=== PATIENT | female | born 1990 | race Caucasian/White ===

== ENCOUNTER 2016-11-15 08:20 | Day surgery (SDC) | payer OTHER ==
[2016-11-14 08:45] VITALS: BMI 17.7
[2016-11-15] MEDS ORDERED: MIDAZOLAM HCL 2 MG/2 ML SINGLE DOSE VIAL ONE (10:24)
[2016-11-15] MEDS ORDERED: ROCURONIUM BROMIDE 50 MG/5 ML VIAL ONE (10:25)
[2016-11-15] MEDS ORDERED: ceFAZolin SODIUM 1 GM VIAL ONE (10:26)
[2016-11-15] MEDS ORDERED: PROMETHAZINE HCL 25 MG/1 ML VIAL IVPUSH PRN (10:33)
[2016-11-15] MEDS ORDERED: ONDANSETRON 4 MG/2 ML VIAL IVPUSH PRN (10:33)
[2016-11-15] MEDS ORDERED: LIDOCAINE HCL 2% (20ML MULTI-DOSE VIAL) NR ONE (10:51)
[2016-11-15] MEDS ORDERED: PROTAMINE SULFATE 50 MG/5 ML VIAL ONE (10:52)
[2016-11-15] MEDS ORDERED: PROPOFOL 20 ML ONE (10:52)
[2016-11-15] MEDS ORDERED: DEXAMETHASONE SOD PHOSPHATE 4 MG/1 ML VIAL ONE (10:58)
[2016-11-15] MEDS ORDERED: ceFAZolin SODIUM 1 GM VIAL IVPB ONE (11:01)
[2016-11-15] MEDS ORDERED: NEOSTIGMINE METHYLSULFATE 0.5 MG/ML - 10 ML MDV ONE (11:33)
[2016-11-15] MEDS ORDERED: GLYCOPYRROLATE 0.2 MG/1 ML VIAL ONE (11:33)
[2016-11-15] MEDS ORDERED: DESFLURANE GAS 240 ML BOTTLE IH ONE (11:44)
[2016-11-15] MEDS ORDERED: BUPIVACAINE HCL/PF 0.5% (5MG/ML) 10 ML VIAL IJ ONE (11:52)
[2016-11-15] MEDS ORDERED: OXYCODONE/APAP 5/325MG COMBO TABLET PO PRN ×2 (12:14→12:17)
[2016-11-15] MEDS ORDERED: SODIUM CHLORIDE 1,000 ML IV SCH (12:15)
[2016-11-15] MEDS ORDERED: ONDANSETRON 4 MG/2 ML VIAL IVPB PRN (12:21)
--- NOTE | 2016-11-15 12:25 | OP ---
Operative Note - Note: Operative Date: 11/15/16 Pre-Operative Diagnosis: multi-nodular goiter Operation: sub-total thyroidectomy Implants: none Post-Operative Diagnosis: Same as Pre-op Surgeon: Mariama Turcios Candy Depositing Machine Operator: Ratna Burks Anesthesia: General Specimens Removed: left thyroid lobe and partial right thyroid lobe Estimated Blood Loss (mls): 50 Operative Report Dictated: Yes
--- NOTE | 2016-11-15 12:26 | HP ---
History & Physical Update - History History: No Change - Physical Physical: No Change - Assessment Assessment: No Change - Plan Plan: No Change
[2016-11-15] MEDS ORDERED: HYDROmorphone HCL CARPU-JECT 2 MG/1 ML DISP.SYRIN ONE (13:03)
[2016-11-15] MEDS ORDERED: HYDROmorphone HCL CARPU-JECT 2 MG/1 ML DISP.SYRIN IVPB ONE (13:07)
[2016-11-15] MEDS ORDERED: ACETAMINOPHEN 325 MG TABLET (FP) PO PRN ×2 (14:23→14:28)
[2016-11-15] MEDS ORDERED: oxyCODONE HCL 5 MG TABLET PO PRN ×2 (14:25→14:30)
[2016-11-15] MEDS: HYDROmorphone HCL CARPU-JECT 1 MG/1 ML DISP.SYRIN IVPB PRN ×2 (16:49→23:34)
[2016-11-15] MEDS: LACTATED RINGERS SOLUTION 1,000 ML IV SCH (16:52)
[2016-11-15 20:01] LABS: ALBUMIN 3.4 g/dl (3.4-5.0); ANION GAP 7 (8-16); CALCIUM 8.3 mg/dL (8.5-10.1); CO2 27 mmol/L (21-32); GLUCOSE,RANDOM 102 mg/dL (74-106)
[2016-11-15 20:05] LABS: ALK PHOS 57 U/L (45-117); BILIRUBIN,TOTAL 0.2 mg/dL (0.2-1.0); CREATININE 0.6 mg/dL (0.55-1.02); SGOT/AST 15 U/L (15-37); SGPT/ALT 14 U/L (12-78); TOT PROT 6.8 g/dl (6.4-8.2)
[2016-11-16] MEDS: HYDROmorphone HCL CARPU-JECT 1 MG/1 ML DISP.SYRIN IVPB PRN (05:40)
--- NOTE | 2016-11-16 06:45 | OP ---
DATE OF OPERATION: 11/15/2016 PREOPERATIVE DIAGNOSIS: Multinodular goiter with dysphagia and difficulty in breathing. POSTOPERATIVE DIAGNOSIS: Multinodular goiter with dysphagia and difficulty in breathing. OPERATIVE PROCEDURE: Near total thyroidectomy. SURGEON: Paras Turcios MD COMMUNICATIONS ASSOCIATE: JAKE Almaguer ANESTHESIA: General endotracheal intubation. INDICATIONS: This is a 26-year-old woman with a history of multinodular goiter admitted with difficulty in swallowing and breathing off and on, at night especially, and patient had a preoperative evaluation which revealed multinodular goiter, both lobes, large size. DESCRIPTION OF PROCEDURE: With the patient after explaining the risks and benefits, she was brought to the operating room. Patient was intubated. Intravenous antibiotic was given. Neck was extended, and incision was made on the lower neck crease. Platysmal muscle was opened, and flap was created above and below, to identify the midline, and once it was done, the thyroid was dissected on both sides. Medial rotation of the thyroid lobe was done, and the superior gland was taken on the gland leaving a small sliver of the thyroid gland behind to avoid injury to the superior laryngeal nerve, and both the recurrent laryngeal nerves were clearly identified and preserved, and thyroid gland was taken away from the trachea, and after adequate hemostasis, the platysma and the skin were closed. Marcaine was injected, and patient went to the recovery room, extubated with no neurological complications. PARAS TURCIOS M.D. [id number]
[2016-11-16] MEDS ORDERED: LEVOTHYROXINE NA 75 MCG TABLET (FP) PO SCH (07:00)
[2016-11-16 07:32] LABS: BASOPHIL 0.4 % (0-2.0); EOSINOPHIL 0.4 % (0-4.5); MCH 26.6 pg (25.7-33.7); MCHC 32.8 g/dl (32.0-36.0); MEAN CELL VOLUME 81.1 fl (80-96); PLATELET COUNT 226 K/MM3 (134-434); RDW 15.1 % (11.6-15.6)
[2016-11-16 08:16] LABS: ALBUMIN 3.2 g/dl (3.4-5.0); ALK PHOS 54 U/L (45-117); ANION GAP 12 (8-16); BILIRUBIN,TOTAL 0.4 mg/dL (0.2-1.0); CALCIUM 8.1 mg/dL (8.5-10.1); CO2 28 mmol/L (21-32); CREATININE 0.5 mg/dL (0.55-1.02); GLUCOSE,RANDOM 65 mg/dL (74-106); SGOT/AST 20 U/L (15-37); SGPT/ALT 14 U/L (12-78); TOT PROT 6.5 g/dl (6.4-8.2)
[2016-11-16 08:25] VITALS: BP 116/74; PULSE 100; TEMP 98.3
[2016-11-16] MEDS: LACTATED RINGERS SOLUTION 1,000 ML IV SCH (12:02)
--- NOTE | 2016-11-16 15:40 | PATH ---
Surgical Pathology Report Patient Name: VIVIANE GOTTLIEB [facility]. Rec. #: [id number] /Age/Gender: 1990 (Age: 26) / F Account: [id number] Location: AMBULATORY SURG Taken: 11/15/2016 Received: 11/15/2016 Reported: 11/16/2016 Physicians: Mariama Turcios M.D. Specimen(s) Received THYROID, SUBTOTAL Clinical History Thyroid nodule, multi-goiters Final Diagnosis THYROID, SUBTOTAL THYROIDECTOMY: BENIGN THYROID TISSUE, 32 GRAMS, WITH MULTIPLE ADENOMATOUS NODULES (MULTINODULAR GOITER). Electronically Signed Sergio Louis M.D. Gross Description Received in formalin labeled "subtotal thyroid," is a 32 g thyroidectomy specimen. The left lobe measures 5.2 x 2.1 x 1.8 cm, isthmus measures 2.0 x 1.7 x 1.0 cm, and the right lobe measures 5.0 x 2.3 x 1.7 cm. The outer capsule is velarde-red and shaggy. The left lobe is inked black, the right lobe is inked red and the isthmus is inked green. Sectioning reveals multifocal colloid nodules. No definitive masses are identified. The remaining thyroid parenchyma is red-brown and beefy. [employer] Placer sections are submitted in 14 cassettes as follows: 1-6-left lobe sequentially from superior to inferior; 7-9-isthmus sequentially from left to right; 10-14-right lobe sequentially from superior to inferior. /11/15/2016 saudi/11/15/2016
== END 2016-11-16 14:49 | disposition home or self-care (01) ==
LOC: JASUSAT 08:20 → J6S 14:52 → JASUSAT 11-16 14:49
PROVIDERS: ATTEND Surgery Vascular Surgery
PROC: 0GBH0ZZ Excision of Right Thyroid Gland Lobe, Open Approach (ICD-10-PCS; 2016-11-15)
PROC: 0GBG0ZZ Excision of Left Thyroid Gland Lobe, Open Approach (ICD-10-PCS; principal; 2016-11-15 10:00)
DX: E04.2 Nontoxic multinodular goiter (principal)
CPT/HCPCS: 36415; 80053; 84703; 85025; 88307-TC; 94760